=== PATIENT | female | born 1995 | race Caucasian/White ===

== ENCOUNTER 2020-02-14 | Outpatient (CLI) | payer MEDICAID, SELFPAY ==
[2017-09-25 09:40] VITALS: BMI 31.8
[2020-02-14 00:09] VITALS: PULSE 100; O2SAT 97
[2020-02-14 00:14] VITALS: BP 126/67; PULSE 100; PULSE 95; TEMP 36.9; O2SAT 97; O2SAT 99
[2020-02-14 00:17] VITALS: BP 126/67; PULSE 98
[2020-02-14 00:23] VITALS: BMI 35.1
[2020-02-14 01:53] LABS: Group B Strep DNA By PCR Negative (Negative); Internal Control PASS; Probe Check PASS; Specimen Processing Control PASS
--- NOTE | 2020-02-14 02:53 | OB.TRI.NOTE ---
History of Present Illness Reason For Visit: R/O LABOR Date of Service: 02/14/20 Final FREDY: 03/03/20 Final FREDY Source: LMP Gestational age: 37 Weeks and 3 Days Allergies codeine Adverse Reaction (Verified 02/14/20 00:25) Vomiting vomits blood Sulfa (Sulfonamide Antibiotics) Adverse Reaction (Verified 02/14/20 00:25) Other worsens pick eye - Pertinent Past Medical History Medical History: Past Medical History (Last Updated 09/25/17 @ 12:41 by Mariah Kaba CNM) Autoimmune disease of liver Family history of genetic disease History of UTI Noted in 1st trimester of History of depression Removal of lymph node in hip Done in 2009 Surgical History: Past Surgical History (Last Updated 09/25/17 @ 12:41 by Mariah Kaba CNM) History of cholecystectomy History of liver biopsy History of tonsillectomy Laboratory Studies: Laboratory Tests 02/14/20 Range/Units 00:45 Group B Strep DNA Negative (Negative) Specimen Comment Not Reportable Physical Exam Vitals: Vital Signs Temp Pulse BP Pulse Ox 98.4 F 98 126/67 H 97 02/14/20 00:14 02/14/20 00:17 02/14/20 00:17 02/14/20 00:14 NST - FHR Rate Baby A Baseline: 125 Variability:: Moderate Accelerations:: 15 x 15 Decelerations:: Variable NST Reactive:: Yes Uterine Activity:: Irregular - Q3-4 minutes on admission Impression/Plan reactive NST for false labor
== END 2020-02-14 03:00 | disposition home or self-care (01) ==
LOC: WPOUT 00:04 → WP 00:05
PROVIDERS: Visit Provider Obstetrics & Gynecology
DX: O47.1 False labor at or after 37 completed weeks of gestation (principal); Z3A.37 37 weeks gestation of pregnancy
CPT/HCPCS: 59025; 59050; 87081; 87653; 99218; G0378

== ENCOUNTER 2020-02-26 19:00 | Inpatient (IN) | payer MEDICAID, SELFPAY ==
[2020-02-26] MEDS: Lactated Ringers 1,000 ML 50 ML IV (19:15)
[2020-02-26 19:16] VITALS: BMI 35.1
[2020-02-26 19:23] VITALS: BP 131/75; PULSE 107
[2020-02-26] MEDS: Oxytocin 30 units/NS 500 ml 30 UNITS/500 ML IV.SOLN IV (19:52)
[2020-02-26 19:53] LABS: Absolute Lymphocyte Count 1.22 X10^3/uL (0.83-4.51); Absolute Neutrophil Count 7.8 X10^3/uL (2.0-7.7); Basophil# 0.02 X10^3/uL; Basophil% 0.2 % (0-1); Hematocrit 35.2 % (37-47); Hemoglobin 12.1 g/dL (12.0-15.0); Lymphocyte # 1.22 X10^3/ul (4.0); Lymphocyte % 12.4 % (19-41); Mean Corp Hgb Conc 34.4 g/dL (32-36); Mean Corpuscular Hgb 33.8 pg (27.0-32.0); Mean Corpuscular Volume 98.3 fL (81-99); Mean Platelet Vol. 11.3 fl (6.2-12.0); Monocyte# 0.66 X10^3/uL; Monocyte% 6.7 % (0-10); NRBC Flagged by Analyzer 0 % (0-5); Neutrophil # 7.81 X10^3/uL (2.7-7.7); Neutrophil % 79.2 % (47-70); Platelet Count 216 K/mm3 (150-450); RBC Distribution Width SD 53.5 fl (35.1-43.9); Red Blood Count 3.58 M/mm3 (4.2-5.4); White Blood Count 9.9 K/mm3 (4.4-11.0)
[2020-02-26] MEDS: 0.9% Normal Saline Single 100 ML IV.SOLN. IY (20:23)
--- NOTE | 2020-02-26 20:35 | PCM.HP.OB ---
- Problem List (1) Encounter for elective induction of labor Status: Acute (2) Autoimmune liver disease Status: Acute (3) History of depression Status: Acute (4) Family history of Prader-Willi syndrome Status: Acute History Date of Admission: 09/25/17 Final FREDY: 03/03/20 Final FREDY Source: LMP Gestational age: 39 Weeks and 1 Days History of this : This is a 24 year-old, G [3], P [2002], at 39 weeks and 1 day gestational age. Requested induction of labor due to history of fast labors. Medical History: Medical History (Last Updated 09/25/17 @ 12:41 by Mariah Kaba CNM) Autoimmune disease of liver K76.89 Family history of genetic disease Z84.89 History of UTI Z87.440 Noted in 1st trimester of History of depression Z86.59 Removal of lymph node in hip Done in 2009 Surgical History: Surgical History (Last Updated 09/25/17 @ 12:41 by Mariah Kaba CNM) History of cholecystectomy Z98.890, Z90.49 History of liver biopsy Z98.890 History of tonsillectomy Z98.890, Z90.89 Allergies codeine Adverse Reaction (Verified 02/14/20 00:25) Vomiting vomits blood Sulfa (Sulfonamide Antibiotics) Adverse Reaction (Verified 02/14/20 00:25) Other worsens pick eye Home Medications: Home Medications Azathioprine [Imuran] 100 mg PO DAILY@0800 06/24/15 Prednisone 5 mg PO DAILY 06/24/15 Vit No.124/Iron/Folic [ Vitamin Tablet] 1 tab PO DAILY 06/24/15 Acetaminophen [Tylenol] 1,000 mg PO Q8H PRN PRN tablet 09/27/17 Famotidine [Pepcid] 40 mg PO DAILY 02/14/20 Smoking Status: Never smoker Alcohol: None Number of Fetus(es): 1 NST - FHR Rate Baby A Baseline: 125 Variability:: Moderate Accelerations:: 15 x 15 Decelerations:: Variable FHR Category:: Category II Uterine Activity:: Irregular, mild History Past Pregnancies: Past Pregnancies Delivery Date Name GA/ Weeks Outcome Route Wt Infant Sex Labor Length Anesthesia Delivery Location Provider FOB Labs: Mom's Problem List Problem Status Onset Code Encounter for elective induction of labor Acute Z34.90 Autoimmune liver disease Acute K76.89 History of depression Acute Z86.59 Family history of Prader-Willi syndrome Acute Z82.79 Mom's Labs & Results 02/26/20 02/26/20 19:15 19:15 WBC 9.9 RBC 3.58 L Hgb 12.1 Hct 35.2 L MCV 98.3 MCH 33.8 H MCHC 34.4 RDW Std Deviation 53.5 H RDW Coeff of Singh 15.0 H Plt Count 216 MPV 11.3 Immature Gran % (Auto) 0.500 Neut % (Auto) 79.2 H Lymph % (Auto) 12.4 L [place] % (Auto) 6.7 Eos % (Auto) 1.0 Baso % (Auto) 0.2 Absolute Neuts (auto) 7.8 H Absolute Lymphs (auto) 1.22 Nucleated RBC % 0 Blood Type O POSITIVE Antibody Screen NEGATIVE Course Did the patient receive Yes care? Labs Blood Type: O RH: POSITIVE RPR/VDRL/Syphilis Nonreactive Rubella status Immune HbSAg Negative Date Done: 08/28/19 Chlamydia Negative Gonorrhea Negative HIV/AIDS Non-Reactive Group B Strep: Negative Social History Marital Status: Alleged father Tevin Johnson Smoking No Smoking Status Never smoker Expected Delivery Method: Spontaneous Vaginal Review of Systems Constitutional: Denies: Chills, Fever, Weight Change Eyes: Denies: Blurred vision HEENT: Denies: Head Aches, Sinus Congestion, Sinus Drainage Cardiovascular: Denies: Chest Pain, Palpitations Respiratory: Denies: Cough, Shortness of breath at rest, Sputum production Gastrointestinal: Denies: Abdominal Pain, Nausea, Vomiting Genitourinary: Denies: Dysuria Neurological: Denies: Numbness, Tingling, Focal weakness Psychiatric: Denies: Anxiety, Depression, Homicidal Ideations, Suicidal Ideations Physical Exam Vitals: Vital Signs Pulse BP 107 H 131/75 H 02/26/20 19:23 02/26/20 19:23 General: Alert, Oriented x3, No apparent distress HEENT: Atraumatic, Normocephalic Cardiovascular: Regular rate, Regular Rhythm, No murmurs Lungs: Clear to auscultation, Normal air movement, No rhonchi, No wheeze Abdomen: Gravid Extremities:: No edema Neurological: Deep Tendon Reflexes 2+/4 and Symmetrical. Negative for: Clonus ASSOCIATE PRODUCER: Normal external genitalia Estimated gestational size: Appropriate for gestational size Presentation: Cephalic Cervix Dilation (cm): 1 - trejo bulb inserted intracervically without complications, 30ml of NS instilled. Patient tolerated well. Station: -2 Effacement (%): 60 Assessment/Plan All Active Problems (Last Updated 09/25/17 @ 12:41 by Mariah Kaba CNM) Encounter for elective induction of labor (Acute) Autoimmune liver disease (Acute) History of depression (Acute) Family history of Prader-Willi syndrome (Acute) Vaginal discharge during in third trimester (Resolved) This is a 24 year-old, G [3], P [2002], at 39 weeks 1day gestational age. A:Elective IOL at term Category 2 FHT P: 1) Admit to labor and delivery 2) IV, labs, continuous EFM 3) Pitocin per protocol. Trejo for cervical ripening 4) Planning unmedicated . May have pain management upon request 5) notified of IOL and collaborative physician.
[2020-02-26 20:50] VITALS: BP 132/79; PULSE 89
[2020-02-26 21:46] VITALS: BP 132/82; PULSE 80
[2020-02-26 22:41] VITALS: BP 124/70; PULSE 78
[2020-02-26 23:32] VITALS: BP 126/76; PULSE 78
[2020-02-27] VITALS (27 sets, daily range): BP systolic 112–145; BP diastolic 60–88; PULSE 63–104; RESP 17–18; TEMP 36.1–36.6; O2SAT 87–100
[2020-02-27] MEDS: Lactated Ringers 500 ML 999 ML IV (07:19)
[2020-02-27] MEDS: fentaNYL-bupivacaine (epidural) 100 ML BAG EPIDURAL (08:16)
--- NOTE | 2020-02-27 08:44 | PCM.PN.OB ---
Patient Problems: Active and Suspected Problems (Last Updated 09/25/17 @ 12:41 by Mariah Kaba CNM) Encounter for elective induction of labor (Acute) Autoimmune liver disease (Acute) History of depression (Acute) Family history of Prader-Willi syndrome (Acute) Subjective: Comfortable with epidural. at bedside. Objective: FHR 125, moderate variability, accels, variable decels, Category 2 TOCO: q2 minutes, strong Pitocin at 8 mu's AROM for moderate amount of clear fluids. 6cm/80%/-1 - Physical Exam Vitals/I&O's: Vital Signs Temp Pulse BP Pulse Ox 97.4 F L 88 124/66 H 93 02/27/20 07:18 02/27/20 08:37 02/27/20 08:37 02/27/20 08:37 Weight: 192 lb 0.362 oz Body Mass Index (BMI) 35.1 Intake and Output for Last 24 Hours 02/25/20 02/26/20 02/27/20 23:59 23:59 23:59 Intake Total 8.03 / 8.03 1127.23 / 1127.23 Balance 8.03 / 8.03 1127.23 / 1127.23 Laboratory Results 02/26/20 19:15: WBC 9.9, RBC 3.58 L, Hgb 12.1, Hct 35.2 L, MCV 98.3, MCH 33.8 H, MCHC 34.4, RDW Std Deviation 53.5 H, RDW Coeff of Singh 15.0 H, Plt Count 216, MPV 11.3, Immature Gran % (Auto) 0.500, Neut % (Auto) 79.2 H, Lymph % (Auto) 12.4 L, [place] % (Auto) 6.7, Eos % (Auto) 1.0, Baso % (Auto) 0.2, Absolute Neuts (auto) 7.8 H, Absolute Lymphs (auto) 1.22, Nucleated RBC % 0 02/26/20 19:15: Blood Type O POSITIVE, Antibody Screen NEGATIVE Current Medications Acetaminophen (Tylenol) 325 - 650 mg PO Q4H PRN PRN PRN Reason: Pain Score 1-3/10 Al Hydroxide/Mg Hydroxide (Mylanta Ii) 15 - 30 ml PO Q4H PRN PRN PRN Reason: INDIGESTION Citric Acid/Sodium Citrate (Bicitra) 30 ml PO X1 PRN PRN Reason: Section Fentanyl Citrate (Sublimaze (100mcg Ampule)) 25 - 50 mcg IV Q2H PRN PRN PRN Reason: Pain Score 4-10/10 Lactated Ringer's () 500 mls @ 999 mls/hr IV .Q31M PRN PRN Reason: Epidural Last Infusion: 02/27/20 07:50 Dose: Infused Documented by: Lactated Ringer's () 500 mls @ 999 mls/hr IV .Q31M PRN PRN Reason: Corrective Measures Lactated Ringer's () 1,000 mls @ 50 mls/hr IV .Q20H [facility] Last Infusion: 02/27/20 07:50 Dose: 200 mls/hr Documented by: Oxytocin/Sodium Chloride () 30 units in 500 mls @ 2 mls/hr IV .Q250H [facility] Last Infusion: 02/27/20 04:22 Dose: 8 mls/hr Documented by: Ondansetron HCl (Zofran) 4 mg IV Q4H PRN PRN PRN Reason: NAUSEA Prochlorperazine Edisylate (Compazine Iv) 10 mg IV Q6H PRN PRN PRN Reason: NAUSEA Sodium Chloride () 10 - 40 ml IV X1 PRN PRN Reason: SALINE FLUSH Medical Necessity - Tobacco Use Smoking Status: Never smoker Assessment/Plan All Active Problems (Last Updated 09/25/17 @ 12:41 by Mariah Kaba CNM) Encounter for elective induction of labor (Acute) Autoimmune liver disease (Acute) History of depression (Acute) Family history of Prader-Willi syndrome (Acute) Vaginal discharge during in third trimester (Resolved) A:Active Labor progressing Category 2 FHT P: 1) Epidural effective 2) Continue with active management 3) Anticipate vaginal delivery soon
[2020-02-27] MEDS: Oxytocin 30 units/NS 500 ml 30 UNITS/500 ML IV.SOLN 334 UNITS IV (09:33)
--- NOTE | 2020-02-27 10:07 | OP.PCM_ITS ---
Problem List (1) Encounter for elective induction of labor Status: Acute (2) Autoimmune liver disease Status: Acute (3) History of depression Status: Acute (4) Family history of Prader-Willi syndrome Status: Acute (5) Vaginal delivery Status: Acute (6) First degree perineal laceration Status: Acute Vaginal Delivery Maternal Presentation: Active Labor Method of Induction: Pitocin Amniotic Membrane Rupture Type: Artificial Amniotic Fluid Description: Clear Final FREDY: 03/04/20 Final FREDY Source: US <20 weeks Gestational age: 39 Weeks and 1 Days Date of Procedure: 02/27/20 Pre-Operative Diagnosis: Induction of labor Surgery/ Procedure Performed: Spontaneous Vaginal Delivery Type of Anesthesia: Epidural Description of Procedure: Progressed to complete with urge to push, epidural in place but feeling pressure. of viable male infant over 1st degree perineal laceration. APGARS 8,9. Infant head delivered with body forthcoming. Placed on maternal abdomen. Mouth and nares suctioned for secretions, strong cry. Pitocin started for active 3rd stage management. Cord clamped and cut after delayed clamping and pulsations ceased by FOB. Placenta delivered spontaneously intact, 3 vessel cord via shul tz. Perineum inspected and revealed small 1st degree perineal laceration, repaired with 3.0 vicryl due to bleeding, well approximated, hemostasis achieved. Fundus firm, EBL 200ml. Mom and baby stable. Planning to breastfeed. Family bonding well. Presentation: Vertex Placental Delivery Description: Spontaneous Placenta Disposition: [facility] Cord Vessel Description: 3 Vessels Cord Entanglement: None Estimated Blood Loss: 200 ml A gender: Male (1 minute): 8 (5 minute): 9 Episiotomy Description: None Laceration: Perineal Extension/lac, 1st degree Medications given after delivery: IV Pitocin Complications: None
--- NOTE | 2020-02-27 16:00 | CASEMGMT ---
Social Work Brief Assessment - Labor and Delivery Unit Refer documentation below for further details. Date of Referral/Notification: 02/27/2020 Time of Referral: 15:30 Referred By: NURSING Reason for Referral: HISTORY OF POST DEPRESSION (PPD) WITH SECOND CHILD. Date of Intervention: 02/27/2020 Time of Intervention: 16:00 Informant: Medical record and mother of baby (MOB) Assessment: MET WITH MOB IN ROOM. INTRODUCED ROLE AND REASON FOR REFERRAL. MOB REPORTS PPD BELIEVES STARTED WITH SECOND CHILD ABOUT A MONTH TO SIX WEEKS AFTER GIVING . MOB STATES NEVER STARTED ON MEDICATIONS. MOB REPORTS ?FELT GOOD? THROUGHOUT . MOB GAVE TO BABY ANIBAL WEINBERG THIS MORNING AND STATES IS DOING WELL. DISCUSSED HAVING A BABY DURING PANDEMIC (COVID-19). MOB REPORTS SOME DIFFICULTY NOT HAVING HER MOTHER HERE HER MOTHER WAS PRESENT FOR FIRST TWO CHILDREN. EMOTIONAL SUPPORT PROVIDED. MOB STATES HAS BEEN FACETIMING WITH FAMILY. MOB REPORTS HAS ALL NEEDS MET FOR BABY AND DENIES ANY NEEDS FOR BABY OR SELF. MOB REPORTS GOOD SUPPORT FROM AND FAMILY AND ANTICIPATES WILL DISCHARGE TOMORROW. MOB PROVIDED WITH EDUCATIONAL INFORMATION ON PPD. MOB VOICES NO QUESTIONS. UPDATED NURSING ON THE ABOVE. NO OTHER ISSUES OR CONCERNS. Plan: HOME WITH RESOURCES PROVIDED. No further needs requested or indicated. -Tosha Barlow, DIRECT CASTING OPERATOR, CLIENT EVALUATOR
[2020-02-27] MEDS: Acetaminophen 500 MG Tablet 1000 MG PO (16:13)
[2020-02-27] MEDS: Ibuprofen 600 MG Tablet PO (18:33)
[2020-02-28] MEDS: Ibuprofen 600 MG Tablet PO ×2 (00:14→06:32)
[2020-02-28 00:15] VITALS: BP 124/72; PULSE 84; RESP 17; TEMP 36.9
[2020-02-28 03:35] VITALS: BP 111/85; PULSE 60; RESP 17
[2020-02-28 06:35] LABS: Hematocrit 32.8 % (37-47); Mean Corp Hgb Conc 33.5 g/dL (32-36); Mean Corpuscular Hgb 33.5 pg (27.0-32.0); Mean Platelet Vol. 11.1 fl (6.2-12.0); Platelet Count 151 K/mm3 (150-450); RBC Distribution Width CV 15.2 % (11.6-14.6); RBC Distribution Width SD 54.9 fl (35.1-43.9); Red Blood Count 3.28 M/mm3 (4.2-5.4); White Blood Count 11.5 K/mm3 (4.4-11.0)
[2020-02-28 07:36] VITALS: BP 116/53; PULSE 90; RESP 16; TEMP 36.3
--- NOTE | 2020-02-28 11:18 | PCM.PN.OB ---
Patient Problems: Active and Suspected Problems (Last Updated 09/25/17 @ 12:41 by Mariah Kaba CNM) Encounter for elective induction of labor (Acute) Autoimmune liver disease (Acute) History of depression (Acute) Family history of Prader-Willi syndrome (Acute) Vaginal delivery (Acute) First degree perineal laceration (Acute) Subjective: Doing well per patient and nursing staff. Ambulating and taking PO without difficulty. Voiding and passing flatus. . lochia normal. Planning d/c home today. - Physical Exam Vitals/I&O's: Vital Signs Temp Pulse Resp BP Pulse Ox 97.4 F L 90 16 116/53 L 100 02/28/20 07:36 02/28/20 07:36 02/28/20 07:36 02/28/20 07:36 02/27/20 09:08 Oxygen Delivery Method Room Air Weight: 192 lb 0.362 oz Body Mass Index (BMI) 35.1 Intake and Output for Last 24 Hours 02/26/20 02/27/20 02/28/20 23:59 23:59 23:59 Intake Total 8.03 / 8.03 1931.61 / 1931.61 Output Total 300 / 300 Balance 8.03 / 8.03 1631.61 / 1631.61 General: Alert, Oriented x3, Cooperative HEENT: Atraumatic, Normocephalic Neck: Trachea Midline Lungs: Clear to auscultation, Normal air movement, No rhonchi, No wheeze Cardiovascular: Regular rate, Regular Rhythm, No murmurs Abdomen: Bowel Sounds Present - Fundus firm 2 below U Extremities: No edema Psych/Mental Status: Normal Affect, Appropriate Laboratory Results 02/28/20 05:35: WBC 11.5 H, RBC 3.28 L, Hgb 11.0 L, Hct 32.8 L, MCV 100.0 H, MCH 33.5 H, MCHC 33.5, RDW Std Deviation 54.9 H, RDW Coeff of Singh 15.2 H, Plt Count 151, MPV 11.1 Current Medications Acetaminophen (Tylenol) 1,000 mg PO Q8H PRN PRN PRN Reason: Pain Score 1-3/10 Last Admin: 02/27/20 16:13 Dose: 1,000 mg Documented by: Bisacodyl (Dulcolax) 10 mg RECTAL UD PRN PRN Reason: If no BM Dibucaine (Dibucaine) 1 applic TOPICAL TID PRN PRN; Protocol PRN Reason: Discomfort Hydrocortisone (Hytone) 1 applic TOPICAL TID PRN PRN; Protocol PRN Reason: Discomfort Ibuprofen (Motrin) 600 mg PO Q6H PRN PRN PRN Reason: Pain Score 1-3/10 Last Admin: 02/28/20 06:32 Dose: 600 mg Documented by: Methylergonovine Maleate (Methergine) 0.2 mg IM X1 PRN PRN Reason: Excess bleeding/uterine atony Ondansetron HCl (Zofran) 4 mg IV Q4H PRN PRN PRN Reason: Nausea Senna/Docusate Sodium (Senokot-S, Gabriella-Colace) 1 - 2 tablet PO DAILY PRN PRN PRN Reason: Constipation Simethicone (Mylicon) 80 mg PO PCHS PRN PRN Reason: Indigestion/Stomach pain Sodium Chloride () 5 - 15 ml IV UD PRN PRN Reason: SALINE FLUSH Medical Necessity - Tobacco Use Smoking Status: Never smoker Assessment/Plan All Active Problems (Last Updated 09/25/17 @ 12:41 by Mariah Kaba CNM) Encounter for elective induction of labor (Acute) Autoimmune liver disease (Acute) History of depression (Acute) Family history of Prader-Willi syndrome (Acute) Vaginal delivery (Acute) First degree perineal laceration (Acute) Vaginal discharge during in third trimester (Resolved) A:PPD #1 P: 1) Routine and instructions 2) Will use OTC motrin for pain 3) Continue current home medications 4) D/C home
--- NOTE | 2020-02-28 11:47 | DCINST_ITS ---
Discharge Diet: No Restrictions Discharge Activity: Return to Normal Activity, May not drive while taking narcotic pain medications., May Shower, May Take a Tub Bath May resume sexual activity in: 4-6 weeks Weight Bearing Status: Full weight bearing Additional Activity Instructions:: Nothing in the vagina for 4-6 weeks. You may return to work/school in 6 weeks. Call your doctor if your incision/area has: Continuous Slow Oozing, Sudden Increased Bleeding, Increased Pain/ Swelling, Increased Redness, Foul Smelling Discharge Call your doctor if you observe: Fever of 101 or Higher, Inability to urinate, Inability to have a bowel movement, Using more than one pad per hour, Shortness of breath, Chest pain, Increased palpitations (irregular heartbeat), Calf discomfort, Uncontrolled pain Additional Instructions: If you experience any of the following, contact your healthcare provider. * Bleeding that soaks a pad every hour for 2 hours * Fever 100.4 or higher * Unrelieved incision or abdominal pain * Swelling, redness, discharge or bleeding from your incision or episiotomy site * Your incision begins to separate * Problems urinating (including inability to urinate or burning while urinating). * Visual changes * Severe headache * Flu-like symptoms * Pain or redness in one of both of your breasts * Pain, warmth, tenderness or swelling in your legs, especially the calf area * Frequent nausea and vomiting * Symptoms of depression or anxiety If you experience any of the following, call 911 or go to the nearest Emergency Room. * Chest pain * Problems breathing * Seizure activity * Partial or complete paralysis of a body part, slurred speech, weakness or drooping of the face, or a sudden inability to walk or hold your balance Allergies/Adverse Reactions: Allergies codeine Adverse Reaction (Verified 02/14/20 00:25) Vomiting vomits blood Sulfa (Sulfonamide Antibiotics) Adverse Reaction (Verified 02/14/20 00:25) Other worsens pick eye Medications to take at Discharge Azathioprine [Imuran] 100 mg PO DAILY@0800 06/24/15 Prednisone 5 mg PO DAILY 06/24/15 Vit No.124/Iron/Folic [ Vitamin Tablet] 1 tab PO DAILY 06/24/15 Acetaminophen [Tylenol] 1,000 mg PO Q8H PRN PRN tablet 09/27/17 Famotidine [Pepcid] 40 mg PO DAILY 02/14/20 Please Follow Up With: Lisbeth Reeder CNM When: Call to make an appointment with your doctor in 6 weeks. If you had elevated Blood Pressure or 4th degree laceration you will need to be seen in 2 weeks. Primary Care Physician: Care Physician,No Primary [Primary Care Provider] - Test Results: Test results from this visit will be discussed in further detail at your follow- up appointment, if applicable.
[2020-02-28 13:05] VITALS: BP 117/69; PULSE 80; RESP 18; TEMP 36.6
== END 2020-02-28 14:45 | disposition home or self-care (01) | DRG 560 ==
PROVIDERS: Admitting Provider Advanced Practice Midwife; Visit Provider Advanced Practice Midwife
DX: O76 Abnormality in fetal heart rate and rhythm complicating labor and delivery (principal); O70.0 First degree perineal laceration during delivery; Z3A.39 39 weeks gestation of pregnancy; Z37.0 Single live birth; O26.62 Liver and biliary tract disorders in childbirth; K75.4 Autoimmune hepatitis; Z87.59 Personal history of other complications of pregnancy, childbirth and the puerperium; Z84.89 Family history of other specified conditions
CPT/HCPCS: 59025; 59050; 85025; 85027; 86850; 86900; 86901; 99218; J7120; G0378

== ENCOUNTER 2020-12-06 14:15 | Outpatient (RCR) | payer MEDICAID, SELFPAY | END 2020-12-11 23:59 | LOC: NS 14:15 | DX: Z71.3 Dietary counseling and surveillance (principal); E66.9 Obesity, unspecified; Z68.32 Body mass index [BMI] 32.0-32.9, adult | CPT/HCPCS: 97802 ==

== ENCOUNTER 2020-12-20 13:55 | Outpatient (RCR) | payer MEDICAID, SELFPAY | END 2020-12-20 23:59 | disposition home or self-care (01) | LOC: NS 13:55 | DX: Z71.3 Dietary counseling and surveillance (principal); E66.9 Obesity, unspecified; Z68.32 Body mass index [BMI] 32.0-32.9, adult | CPT/HCPCS: 97803 ==